=== PATIENT | female | born 1950 | race Caucasian/White ===

== ENCOUNTER 2024-10-15 08:16 | Observation (INO) ==
[2024-10-15] MEDS ORDERED: MoRPHine SULFATE 4 MG/ML 1 ML CARP\\VIAL IV PRN (08:31)
--- NOTE | 2024-10-15 08:45 | Emergency Department Note ---
Impression & Plan Partial obstruction of small intestine, Abdominal pain, Hernia, ventral, Urinary tract infection ED Provider Note NAME: NHAN THAKKAR AGE: 73 SEX: F : 1950 ARRIVES VIA: Walk-In INFORMANT: Patient, ED PROVIDER(S): Steve Katz DO CHIEF COMPLAINT: Abdominal pain HPI: The patient is a 73-year-old female who presented to the emergency department for an evaluation of abdominal pain. The patient described supraumbilical pain. She has a history of ventral hernia and thinks it may have recurred. She denies having any vomiting. She denies having any chest pain or difficulty breathing. ROS: See above HPI for pertinent positives & negatives. A total of 10 systems reviewed and were otherwise negative. PAST MEDICAL HISTORY: See Below PAST SURGICAL HISTORY: See Below FAMILY HISTORY: See Below SOCIAL HISTORY: See Below HOME MEDICATIONS: See Below ALLERGIES: See Below VITALS: See Below PHYSICAL EXAMINATION: GENERAL: Patient is awake alert in no acute distress patient is resting comfortably and showing no signs of anxiety EYES: The conjunctivae are clear. The pupils are round and reactive. EARS, NOSE, MOUTH AND THROAT: The nose is without any evidence of any deformity. NECK: The neck is nontender and supple. RESPIRATORY: Normal respiratory effort is noted there is no evidence of wheezing rhonchi or rales CARDIOVASCULAR: Regular rate and rhythm noted there no murmurs rubs or gallops normal S1 normal S2. GASTROINTESTINAL: The abdomen was soft and mildly distended. There was a scar in the supraumbilical region. There was an area of tenderness which may represent a small ventral hernia. MUSCULOSKELETAL/EXTREMITIES: There is no evidence of gross deformity full range of motion is noted in the hips and shoulders. SKIN: There is no obvious evidence of any rash. There are no petechiae, pallor or cyanosis noted. NEUROLOGIC: Patient is awake alert and oriented x3 MEDICAL DECISION MAKING: The patient is a 73-year-old female who presented to the emergency department for an evaluation of abdominal pain. The patient's had ongoing pain for quite some time but it started getting worse recently. She was seen by her primary general surgeon. She is scheduled for a ventral hernia repair. She started getting different pain and came to the emergency department for further evaluation. Radiographic studies appear to be consistent with an early small bowel obstruction. I discussed her condition with the on-call general surgeon. I also discussed her condition with the on-call [facility] hospitalist. They have agreed to evaluate the patient in the emergency department for further management and disposition. Triage Nursing notes reviewed. Prior medical records reviewed Vital Signs: reviewed and remarkable for no significant abnormalities Differential diagnosis: Etiologies such as appendicitis, diverticulitis, obstruction, inflammatory bowel disease, renal colic, PUD, biliary pathology, pancreatitis, mesenteric ischemia, aortic pathology, infections, genitourinary, UTI, perforated viscus, as well as others were entertained. ER treatment provided: See below Diagnostics interpreted by me: ECG:EKG was obtained in the emergency department. My interpretation is normal sinus rhythm at 75 bpm. There is no ectopy. There is no acute ST segment abnormalities noted. QRS duration was 80 ms. Cardiac Monitoring: An order was placed for continuous cardiac monitoring. The monitor shows a rate of 80 bpm with sinus rhythm. Laboratory studies: As stated above and show below. Imaging studies: See below. Radiographic imaging was reviewed by myself Consultation(s): I discussed this case with Dr. Cuello who is on-call for general surgery. I discussed this case with Dr. Rosen who is on-call for the [facility] hospitalist group. Past Med/Surg History Problem List Acute pneumonia Pleurisy Pleural effusion, right Hypoxia Chest pain (Acute) Acute cholecystitis due to biliary calculus (Acute) Acute cholecystitis History of ERCP Cholelithiasis (Acute) Back problem Chronic diastolic heart failure Edema GERD (gastroesophageal reflux disease) Urinary incontinence Hypertension Medical History History of anesthesia reaction "very very sick coming out of surgery" Bronchitis Arthritis Seizures Surgical History History of knee replacement H/O right hemicolectomy History of bladder surgery History of partial hysterectomy S/P T&A (status post tonsillectomy and adenoidectomy) Hx of colonoscopy Family History Sister Cancer Sister Cancer Mother Heart disease Brother Heart disease Social History Smoking Status: Never smoker Hx Alcohol Use: No Hx Substance Use: No Preferred Language: Latvian Communication Ability: Effective marital status: Current Living Situation: Spouse How many Children do You have: 2 Feels Safe at Home: Yes during the past year weight has: remained stable Assistive Devices: Cane Allergies Allergies Allergy/AdvReac Type Severity Reaction Status Date / Time No Known Allergies Allergy Verified 09/09/23 17:39 Home Meds Home Medications Medication Instructions Recorded Confirmed cholecalciferol (vitamin D3) 25 1,000 unit PO QAM 06/18/18 10/15/24 mcg (1,000 unit) capsule (Vitamin D3) glucosamine-chondroitin 750 mg-600 2 tabs PO QAM 06/18/18 10/15/24 mg tablet meloxicam 15 mg tablet 15 mg PO QAM 06/18/18 10/15/24 metoprolol succinate 25 mg 25 mg PO DAILY 06/18/18 10/15/24 tablet,extended release 24 hr furosemide 40 mg tablet 40 mg PO DAILY 08/31/23 10/15/24 pantoprazole 40 mg tablet,delayed 40 mg PO DAILY 08/31/23 10/15/24 release potassium chloride 20 mEq 20 meq PO DAILY 08/31/23 10/15/24 tablet,extended release ascorbic acid (vitamin C) 500 mg 500 mg PO QAM 09/09/23 10/15/24 tablet (Vitamin C) calcium carbonate 500 mg PO QAM 09/09/23 10/15/24 vitamin E 400 unit tablet 400 unit PO QAM 09/09/23 10/15/24 Iron Infusion 1 dose IV DIRECTED 10/15/24 10/15/24 Probiotic 1 cap PO DAILY 10/15/24 10/15/24 acetaminophen 500 mg tablet 1,500 mg PO HS PRN Pain 10/15/24 10/15/24 ferrous sulfate 325 mg (65 mg 325 mg PO .WED,WED,Wednesday10/15/24 10/15/24 iron) tablet latanoprost 0.005 % eye drops 1 drp ophthalmic (eye) HS 10/15/24 10/15/24 fgttgf-zcitceol-apxyozb 2 cap PO TID 10/15/24 10/15/24 36,000-114,000-180,000 unit capsule,delay rel (Creon) multivitamin 1 tab PO DAILY 10/15/24 10/15/24 Results & Data (ED) Vital Signs Vital Signs - 24 hr 10/15/24 08:22 10/15/24 08:43 10/15/24 08:45 Temperature 36.5 C Temperature Source Oral Pulse Rate 88 Pulse Rate [Apical] 84 Pulse Rhythm Regular Pulse Strength Normal Respiratory Rate 18 20 Respiratory Effort / Characteristics Non-Labored Spontaneous Respiratory Depth Normal Respiratory Pattern Regular Blood Pressure 156/87 H Blood Pressure [Right Arm] 169/88 H Blood Pressure Mean 110 Blood Pressure Mean [Right Arm] 115 Blood Pressure Position Sitting Pulse Oximetry 95 96 Oxygen Delivery Method Room Air Room Air Room Air Sepsis Recent Fever Within 48 Hours No Sepsis New/Unexplained Change in Mental Status No Sepsis Action Taken by Nursing No Action Required 10/15/24 08:53 10/15/24 09:34 10/15/24 11:28 Temperature Temperature Source Pulse Rate 82 Pulse Rate [Apical] 79 80 Pulse Rhythm Pulse Strength Respiratory Rate 17 23 Respiratory Effort / Characteristics Respiratory Depth Respiratory Pattern Blood Pressure Blood Pressure [Right Arm] 152/82 H 150/82 H Blood Pressure Mean Blood Pressure Mean [Right Arm] 105 104 Blood Pressure Position Pulse Oximetry 98 96 Oxygen Delivery Method Room Air Room Air Sepsis Recent Fever Within 48 Hours Sepsis New/Unexplained Change in Mental Status Sepsis Action Taken by Shelter Medications Current Medication List: was personally reviewed by me Laboratory Data Attestation: I reviewed the patient's lab results. 10/15/24 08:48 10/15/24 08:48 Lab Results 10/15/24 10/15/24 10/15/24 Range/Units 08:31 08:48 08:54 WBC 13.45 H (4.8-10.8) K/ul RBC 3.91 L (4.20-5.40) M/uL Hgb 11.3 L (12.0-16.0) g/dl POC Hgb 12.2 (12.0-16.0) g/dl Hct 35.4 L (37.0-47.0) % POC Hct 36 L (37-47) % MCV 90.5 (80.0-100.0) fL MCH 28.9 (25.0-34.0) pg MCHC 31.9 L (32.0-36.0) g/dL RDW Std Deviation 48.0 H (36.4-46.3) fL RDW Coeff of Leonora 14.6 H (11.5-14.5) % Plt Count 302 (130-400) K/uL MPV 9.6 (9.4-12.4) fL Immature Gran % (Auto) 0.4 % Neut % (Auto) 74.3 % Lymph % (Auto) 12.2 % Desha % (Auto) 11.2 % Eos % (Auto) 1.6 % Baso % (Auto) 0.3 % Neut # (Auto) 10.00 H (1.40-6.50) K/uL Lymph # (Auto) 1.64 (1.20-3.40) K/uL Desha # (Auto) 1.50 H (0.11-0.59) K/uL Eos # (Auto) 0.21 (0.00-0.50) K/uL Baso # (Auto) 0.04 (0.00-0.20) K/uL Immature Gran # (Auto) 0.06 (0.01-0.20) K/uL POC Sodium 142 (135-144) mmol/L Sodium 141 (136-145) mmol/L POC Potassium 4.2 (3.3-5.0) mmol/L Potassium 4.3 (3.5-5.1) mmol/L POC Chloride 105 (101-112) mmol/L Chloride 108 H (98-107) mmol/L Carbon Dioxide 26 (21-32) mmol/L POC Total CO2 24 (24-31) mmol/L Anion Gap 7 (3-11) POC Anion Gap 18.0 (16-25) mmol/L POC BUN 15 (7-18) mg/dl BUN 16 (6-23) mg/dl Creatinine 0.57 L (0.6-1.2) mg/dl POC Creatinine 0.6 (0.6-1.3) mg/dl Est Cr Clr Drug Dosing 106.6 ml/min eGFR 95.30 BUN/Creatinine Ratio 28.1 H (10-20) Glucose 111 H (70-99(Fasting)) mg/dl POC Glucose (other) 109 H (70-99) mg/dl Calcium 9.6 (8.6-10.3) mg/dl POC Ioniz Calcium Maritza 1.24 (1.12-1.32) mmol/l Total Bilirubin 0.5 (0.2-1.0) mg/dl AST 12 L (13-39) U/L ALT 13 (7-52) U/L Alkaline Phosphatase 82 (34-104) U/L Troponin I High Sens 2.8 (0-14) pg/ml Total Protein 7.0 (6.0-8.3) gm/dl Albumin 4.4 (3.4-5.0) gm/dl Globulin 2.6 (2.5-4.0) gm/dl Albumin/Globulin Ratio 1.7 (0.9-2) Lipase 4 L (11-82) U/L Urine Color Yellow Urine Appearance Cloudy A (Clear) Urine pH 5.0 (4.5-7.5) Ur Specific Sage 1.013 (1.000-1.030) Urine Protein Negative (Negative) Urine Glucose (UA) Negative (Negative) Urine Ketones Negative (Negative) Urine Blood Trace H (Negative) Urine Nitrite Positive A (Negative) Urine Bilirubin Negative (Negative) Urine Urobilinogen Negative (Negative) Ur Leukocyte Esterase 3+ H (Negative) Urine WBC (Auto) >50 H (0-5) /hpf Urine RBC (Auto) 0-2 (0-2) /hpf U Hyaline Cast (Auto) 0-2 (0-2) /lpf U Epithel Cells (Auto) 0-2 (0-2) /hpf Urine Bacteria (Auto) 4+ H (None Seen) Administered Medications Discontinued Medications Ceftriaxone Sodium (Rocephin) 2,000 mg in 50 mls @ 100 mls/hr IV NOW STA Stop: 10/15/24 09:54 Last Infusion: 10/15/24 10:01 Dose: Infused Documented By: Admin: 10/15/24 09:31 Dose: 100 mls/hr Documented By: VIELKA Ioversol (Optiray 320 100ml) 94 ml IV ONCE ONE Stop: 10/15/24 09:05 Last Admin: 10/15/24 09:05 Dose: 94 ml Documented By: ALMAS Imaging Data Attestation: I personally reviewed and interpreted this imaging study as follows: My Impression: CT of the abdomen and pelvis was obtained in the emergency department. My interpretation is no free air, final report below. Radiologist's Impression: Abdomen/Pelvis CT 10/15/24 08:32 EXAM: CT Abdomen and Pelvis Without Intravenous Contrast INDICATION: Increased abdominal pain around ventral hernia TECHNIQUE: Axial computed tomography images of the abdomen and pelvis without intravenous contrast. Sagittal and coronal reformatted images were created and reviewed. This CT exam was performed using one or more of the following dose reduction techniques: automated exposure control, adjustment of the mA and/or kV according to patient size, and/or use of iterative reconstruction technique. CONTRAST: 94ml of Optiray 320 was administered intravenously. COMPARISON: 2 09/13/2023 FINDINGS: Limitations: None. Lung bases: Course scarring or atelectasis noted in the lung bases. Pleural space: No pleural effusion. Heart: No abnormality noted. Mediastinum: Small sliding hiatal hernia. ABDOMEN: Liver: Trace intrahepatic biliary dilatation and minimal pneumobilia consistent with postoperative change. Gallbladder and bile ducts: Cholecystectomy. There is mild prominent enhancement of the common bile duct which is normal caliber at 6 mm. No calcification. Pancreas: No pancreatic mass, calcification, inflammation or ductal dilation noted. Spleen: No significant abnormality noted. Adrenals: No significant abnormality noted. Kidneys and ureters: Mild bilateral renal cortical scarring noted. Simple right renal cysts. No follow-up of these simple cysts is necessary. Stomach and bowel: Partial right colectomy. Moderate amounts of stool throughout the redundant colon and extensive, diffuse diverticulosis noted. Distal small bowel loops in the right pelvis are thickened and mildly inflamed. Solid contents identified consistent with stasis. No defined obstructing point. PELVIS: Appendix: Appendectomy. Bladder: Appears normal for the degree of filling. No stones or inflammation. No large mass. Masses may not be detected in the absence of opacification. Reproductive: Hysterectomy. ABDOMEN and PELVIS: Intraperitoneal space: Trace fluid in the right lower quadrant. Decreased fluid in the right upper quadrant. No abscess or free air. Bones/joints: Degenerative changes noted throughout the spine. No acute osseous abnormality seen. Soft tissues: There is interval increase size of rectus diastases and umbilical hernia with a large 5.3 cm neck. The sac contains fat. Vasculature: No abdominal aortic aneurysm. Lymph nodes: There are multiple reactive and mildly enlarged right lower quadrant nodes. IMPRESSION: 1. Multiple thickened small bowel loops in the right lower quadrant concerning for developing bowel obstruction. Infectious enteritis also considered. Reactive right lower quadrant adenopathy noted. 2. Prominent enhancement of the common bile duct without stone or dilatation. Correlate clinically for cholangitis. 3. Moderate amounts of diffuse colonic stool and extensive, severe diverticulosis. No diverticulitis. ACT 112: N/A Electronically signed by Hoda Dalal 10-15-2024 09:42 AM Discharge Plan Visit Data Chief Complaint: Abdominal Pain Stated Complaint: HERNIA, ABD PAIN ED Provider: Steve Katz Discharge Problem: Partial obstruction of small intestine, Abdominal pain, Hernia, ventral, Urinary tract infection Patient Disposition: Being Evaluated by Hospitalist Forms Stand Alone Forms: My [facility] Prescriptions Prescriptions: No Action pantoprazole 40 mg tablet,delayed release (DR/EC) 40 mg PO DAILY potassium chloride 20 mEq tablet extended release 20 meq PO DAILY furosemide 40 mg tablet 40 mg PO DAILY meloxicam 15 mg tablet 15 mg PO QAM metoprolol succinate 25 mg tablet extended release 24 hr 25 mg PO DAILY cholecalciferol (vitamin D3) [Vitamin D3] 1,000 unit Capsule 1,000 unit PO QAM glucosamine-chondroitin 750-600 mg Tablet 2 tabs PO QAM multivitamin [Multi-Vitamin] Tablet 1 tab PO DAILY latanoprost 0.005 % drops 1 drp ophthalmic (eye) HS acetaminophen [Tylenol Ex Str Rapid Release] 500 mg Tablet 1,500 mg PO HS PRN (Reason: Pain) ferrous sulfate 325 mg (65 mg iron) Tablet 325 mg PO .MON,WED,WEDNESDAY Creon 36,000-114,000- 180,000 unit capsule,delayed release(DR/EC) 2 cap PO TID Rx Instructions: plus 1 with snack Iron Infusion 1 dose IV DIRECTED Rx Instructions: next infusion october 17 Probiotic 1 cap PO DAILY calcium carbonate 500 mg calcium (1,250 mg) Tablet 500 mg PO QAM Rx Instructions: Patient unsure of strength at this date/time. ascorbic acid (vitamin C) [Vitamin C] 500 mg Tablet 500 mg PO QAM Rx Instructions: Patient unsure of strength at this date/time. vitamin E 400 unit Tablet 400 unit PO QAM Rx Instructions: Patient unsure of strength at this date/time. Referrals Referrals: Sol Davis CRNP [Primary Care Provider] -
[2024-10-15] MEDS: OPTIRAY 320 100ml IV ONE (09:05)
[2024-10-15 09:07] LABS: Basophils # (auto) 0.04 K/uL (0.00-0.20); Basophils % (auto) 0.3 %; Eosinophils # (auto) 0.21 K/uL (0.00-0.50); Eosinophils % (auto) 1.6 %; Hematocrit (blood only) 35.4 % (37.0-47.0); Hemoglobin 11.3 g/dl (12.0-16.0); Immature Granulocytes # (auto) 0.06 K/uL (0.01-0.20); Immature Granulocytes % (auto) 0.4 %; Lymphocytes # (auto) 1.64 K/uL (1.20-3.40); Lymphocytes % (auto) 12.2 %; Mean Corpuscular Hemoglobin 28.9 pg (25.0-34.0); Mean Corpuscular Hgb Conc 31.9 g/dL (32.0-36.0); Mean Corpuscular Volume 90.5 fL (80.0-100.0); Mean Platelet Volume 9.6 fL (9.4-12.4); Monocytes % (auto) 11.2 %; Neutrophils % (auto) 74.3 %; Platelet Count 302 K/uL (130-400); RDW Coefficient of Variation 14.6 % (11.5-14.5); Red Blood Count 3.91 M/uL (4.20-5.40); White Blood Count 13.45 K/ul (4.8-10.8)
[2024-10-15 09:09] LABS: iSTAT Creatinine 0.6 mg/dl (0.6-1.3); iSTAT Hemoglobin 12.2 g/dl (12.0-16.0); iSTAT Ionized Calcium 1.24 mmol/l (1.12-1.32); iSTAT Potassium 4.2 mmol/L (3.3-5.0)
[2024-10-15 09:09] LABS: Appearance Urine Cloudy (Clear); Bacteria Urine Automated 4+ (None Seen); Bilirubin Urine Negative (Negative); Blood Urine Trace (Negative); Cast Urine Automated 0-2 /lpf (0-2); Color Urine Yellow; Epithelial Cell Urine Auto 0-2 /hpf (0-2); Glucose Urine UA Negative (Negative); Ketones Urine Negative (Negative); Leukocyte Esterase Urine 3+ (Negative); Nitrite Urine Positive (Negative); Protein Urine Negative (Negative); RBC Urine Automated 0-2 /hpf (0-2); Specific Gravity Urine 1.013 (1.000-1.030); Urobilinogen Urine Negative (Negative); WBC Urine Automated >50 /hpf (0-5)
[2024-10-15 09:26] LABS: Albumin Globulin Ratio 1.7 (0.9-2); Albumin Level 4.4 gm/dl (3.4-5.0); BUN Creatinine Ratio 28.1 (10-20); Bilirubin,Total 0.5 mg/dl (0.2-1.0); Calcium 9.6 mg/dl (8.6-10.3); Creatinine Clr Calc Pharmacy 106.6 ml/min; Globulin 2.6 gm/dl (2.5-4.0); Potassium 4.3 mmol/L (3.5-5.1)
[2024-10-15] MEDS: cefTRIAXone SODIUM 2,000 MG/50 ML BAG IV STA (09:31)
[2024-10-15 09:32] LABS: Troponin I High Sensitivity 2.8 pg/ml (0-14)
--- NOTE | 2024-10-15 09:43 | CT Scan Report ---
EXAM: CT Abdomen and Pelvis Without Intravenous Contrast INDICATION: Increased abdominal pain around ventral hernia TECHNIQUE: Axial computed tomography images of the abdomen and pelvis without intravenous contrast. Sagittal and coronal reformatted images were created and reviewed. This CT exam was performed using one or more of the following dose reduction techniques: automated exposure control, adjustment of the mA and/or kV according to patient size, and/or use of iterative reconstruction technique. CONTRAST: 94ml of Optiray 320 was administered intravenously. COMPARISON: 2 09/13/2023 FINDINGS: Limitations: None. Lung bases: Course scarring or atelectasis noted in the lung bases. Pleural space: No pleural effusion. Heart: No abnormality noted. Mediastinum: Small sliding hiatal hernia. ABDOMEN: Liver: Trace intrahepatic biliary dilatation and minimal pneumobilia consistent with postoperative change. Gallbladder and bile ducts: Cholecystectomy. There is mild prominent enhancement of the common bile duct which is normal caliber at 6 mm. No calcification. Pancreas: No pancreatic mass, calcification, inflammation or ductal dilation noted. Spleen: No significant abnormality noted. Adrenals: No significant abnormality noted. Kidneys and ureters: Mild bilateral renal cortical scarring noted. Simple right renal cysts. No follow-up of these simple cysts is necessary. Stomach and bowel: Partial right colectomy. Moderate amounts of stool throughout the redundant colon and extensive, diffuse diverticulosis noted. Distal small bowel loops in the right pelvis are thickened and mildly inflamed. Solid contents identified consistent with stasis. No defined obstructing point. PELVIS: Appendix: Appendectomy. Bladder: Appears normal for the degree of filling. No stones or inflammation. No large mass. Masses may not be detected in the absence of opacification. Reproductive: Hysterectomy. ABDOMEN and PELVIS: Intraperitoneal space: Trace fluid in the right lower quadrant. Decreased fluid in the right upper quadrant. No abscess or free air. Bones/joints: Degenerative changes noted throughout the spine. No acute osseous abnormality seen. Soft tissues: There is interval increase size of rectus diastases and umbilical hernia with a large 5.3 cm neck. The sac contains fat. Vasculature: No abdominal aortic aneurysm. Lymph nodes: There are multiple reactive and mildly enlarged right lower quadrant nodes. IMPRESSION: 1. Multiple thickened small bowel loops in the right lower quadrant concerning for developing bowel obstruction. Infectious enteritis also considered. Reactive right lower quadrant adenopathy noted. 2. Prominent enhancement of the common bile duct without stone or dilatation. Correlate clinically for cholangitis. 3. Moderate amounts of diffuse colonic stool and extensive, severe diverticulosis. No diverticulitis. ACT 112: N/A Electronically signed by Hoda Dalal 10-15-2024 09:42 AM
--- NOTE | 2024-10-15 11:51 | History & Physical Report ---
Date of Service October 15, 2024 Assessment & Plan (1) Abdominal pain: (2) Gastritis: (3) Constipation: (4) Urinary incontinence: Plan Jennifer is a 73yo F with PMHx notable for acute cholecystitis, ventral hernia, arthritis, pancreatic insufficiency, and CHF and surgical hx of cholecystectomy, hernia repair, hemicolectomy, and hysterectomy. She presented to the ED on 10/15 due to severe, episodic abdominal pain. #Abd pain - Brief, episodic epigastric pain since her hernia surgery in Apr 2024. Not a/w any activity or diet. - Likely some PUD/gastritis + chronic constipation - Already seen by gen surg, who recommended NPO, IVF, bowel rest d/t imaging concern for developing SBO; however, sx not consistent w/ obstruction, and starting regular diet as soon as tolerated will expedite time to discharge. - Start 40mg Protonix daily + 10mg Pepcid BID #Urinary sx - Reports chronic incontinence and no current dysuria or changes in frequency or urgency - Given 1 x 2g ceftraixone in ED; will discontinue abx now Chronic, stable conditions: - CHF - continue lasix, metoprolol - Pancreatic insufficiency - continue Creon - OA - holding meloxicam Diet: regular VTE ppx: ambulate; may add Lovenox if stay is extended Dispo: admit to med/surg, anticipate d/c home on 10/16 Code: Full History of Present Illness Primary Care Provider: EVELYNE Moore Jennifer is a pleasant 73yo F who presented to the ED on 10/15 due to severe, episodic abdominal pain. She says the pain first began after her hernia surgery in Apr 2024. Since then, she has had several episodes spaced a few days to weeks apart, 3 of which she says were severely painful. She describes the pain as epigastric, bandlike, initially dull with a rolling/pulling sensation internally, but can (those 3 times) become very sharp and severe. Each episode is brief. The pain spontaneously resolves and typically does not return soon. Last night, however, she kept having waves of pain for hours, bad enough that the pain woke her and her partner up. No nausea or vomiting. Pain does not appear a/w any food, activity, or position. She has had issues w diarrhea since her cholecystectomy, and then issues w constipation since starting on pancreatic enzymes and occasionally taking imodium. Reports that the frequency does not correlate to this abd pain. Last BM was yesterday. Her only other complaints are an ongoing cough and associated chest soreness, and recent fatigue with remarkable lack of energy the past few days. Allergies Allergy/AdvReac Type Severity Reaction Status Date / Time No Known Allergies Allergy Verified 09/09/23 17:39 Home Medications Medication Instructions Recorded Confirmed Type cholecalciferol (vitamin D3) 25 1,000 unit PO QAM 06/18/18 10/15/24 History mcg (1,000 unit) capsule (Vitamin D3) glucosamine-chondroitin 750 mg-600 2 tabs PO QAM 06/18/18 10/15/24 History mg tablet meloxicam 15 mg tablet 15 mg PO QAM 06/18/18 10/15/24 History metoprolol succinate 25 mg 25 mg PO DAILY 06/18/18 10/15/24 History tablet,extended release 24 hr furosemide 40 mg tablet 40 mg PO DAILY 08/31/23 10/15/24 History pantoprazole 40 mg tablet,delayed 40 mg PO DAILY 08/31/23 10/15/24 History release potassium chloride 20 mEq 20 meq PO DAILY 08/31/23 10/15/24 History tablet,extended release ascorbic acid (vitamin C) 500 mg 500 mg PO QAM 09/09/23 10/15/24 History tablet (Vitamin C) calcium carbonate 500 mg PO QAM 09/09/23 10/15/24 History vitamin E 400 unit tablet 400 unit PO QAM 09/09/23 10/15/24 History Iron Infusion 1 dose IV DIRECTED 10/15/24 10/15/24 History Probiotic 1 cap PO DAILY 10/15/24 10/15/24 History acetaminophen 500 mg tablet 1,500 mg PO HS PRN Pain 10/15/24 10/15/24 History ferrous sulfate 325 mg (65 mg 325 mg PO .MON,WED,Wednesday10/15/24 10/15/24 History iron) tablet latanoprost 0.005 % eye drops 1 drp ophthalmic (eye) HS 10/15/24 10/15/24 History [id number] 2 cap PO TID 10/15/24 10/15/24 History 36,000-114,000-180,000 unit capsule,delay rel (Creon) multivitamin 1 tab PO DAILY 10/15/24 10/15/24 History Past Med/Surg History Problem List (Updated 10/15/24 @ 12:08 by Benji Adames MD) Constipation Gastritis Abdominal pain Acute pneumonia Pleurisy Pleural effusion, right Hypoxia Chest pain (Acute) Acute cholecystitis due to biliary calculus (Acute) Acute cholecystitis History of ERCP Cholelithiasis (Acute) Back problem Chronic diastolic heart failure Edema GERD (gastroesophageal reflux disease) Urinary incontinence Hypertension Medical History History of anesthesia reaction "very very sick coming out of surgery" Bronchitis Arthritis Seizures Surgical History History of knee replacement H/O right hemicolectomy History of bladder surgery History of partial hysterectomy S/P T&A (status post tonsillectomy and adenoidectomy) Hx of colonoscopy Family History Sister Cancer Sister Cancer Mother Heart disease Brother Heart disease Social History Smoking Status: Never smoker Hx Alcohol Use: No Hx Substance Use: No Preferred Language: Divehi Communication Ability: Effective Legal Support Analyst Required: No Beliefs That Will Affect Care: Rastafarian Rastafarian Beliefs: Conniezahome marital status: Current Living Situation: Spouse How many Children do You have: 2 Feels Safe at Home: Yes during the past year weight has: remained stable Assistive Devices: Cane Review of Systems 2 Review of Systems: Full ROS conducted and negative except as noted in HPI. Physical Exam 2 Physical Exam: Gen: Very pleasant, WD/WN, NAD HEENT: NCAT, PERRL, MMM CV: RRR, no m/r/g, S1/S2 normal Resp: CTAB, symmetrical chest rise, breathing non-labored Abd: Soft, nondistended, mod epigastric tenderness, no guarding or rigidity, no suprapubic or particular quadrant ttp MSK: Full ROM, normal str, no gross deformities, slight RLE swelling Skin: Warm, dry, well-perfused Neuro: AOx3, CN II-XII grossly intact Psych: Mood-affect congruent. Speech pace and content normal. Results & Data Results & Data Vital Signs (Past 12 Hours) Vital Signs Temp Pulse Pulse Resp BP BP Pulse Ox 10/15/24 11:28 80 23 150/82 H 96 10/15/24 09:34 79 17 152/82 H 98 10/15/24 08:53 82 10/15/24 08:45 84 20 169/88 H 96 10/15/24 08:43 10/15/24 08:22 36.5 C 88 18 156/87 H 95 O2 Del Method 10/15/24 11:28 Room Air 10/15/24 09:34 Room Air 10/15/24 08:53 10/15/24 08:45 Room Air 10/15/24 08:43 Room Air 10/15/24 08:22 Room Air Laboratory Results 10/15/24 08:48 10/15/24 08:48 Total Bilirubin 0.5 (0.2-1.0) mg/dl AST 12 L (13-39) U/L ALT 13 (7-52) U/L Alkaline Phosphatase 82 (34-104) U/L Troponin I High Sens 2.8 (0-14) pg/ml Total Protein 7.0 (6.0-8.3) gm/dl Albumin 4.4 (3.4-5.0) gm/dl Globulin 2.6 (2.5-4.0) gm/dl Albumin/Globulin Ratio 1.7 (0.9-2) Lipase 4 L (11-82) U/L Diagnostic Findings Abdomen/Pelvis CT 10/15/24 08:32 EXAM: CT Abdomen and Pelvis Without Intravenous Contrast INDICATION: Increased abdominal pain around ventral hernia TECHNIQUE: Axial computed tomography images of the abdomen and pelvis without intravenous contrast. Sagittal and coronal reformatted images were created and reviewed. This CT exam was performed using one or more of the following dose reduction techniques: automated exposure control, adjustment of the mA and/or kV according to patient size, and/or use of iterative reconstruction technique. CONTRAST: 94ml of Optiray 320 was administered intravenously. COMPARISON: 2 09/13/2023 FINDINGS: Limitations: None. Lung bases: Course scarring or atelectasis noted in the lung bases. Pleural space: No pleural effusion. Heart: No abnormality noted. Mediastinum: Small sliding hiatal hernia. ABDOMEN: Liver: Trace intrahepatic biliary dilatation and minimal pneumobilia consistent with postoperative change. Gallbladder and bile ducts: Cholecystectomy. There is mild prominent enhancement of the common bile duct which is normal caliber at 6 mm. No calcification. Pancreas: No pancreatic mass, calcification, inflammation or ductal dilation noted. Spleen: No significant abnormality noted. Adrenals: No significant abnormality noted. Kidneys and ureters: Mild bilateral renal cortical scarring noted. Simple right renal cysts. No follow-up of these simple cysts is necessary. Stomach and bowel: Partial right colectomy. Moderate amounts of stool throughout the redundant colon and extensive, diffuse diverticulosis noted. Distal small bowel loops in the right pelvis are thickened and mildly inflamed. Solid contents identified consistent with stasis. No defined obstructing point. PELVIS: Appendix: Appendectomy. Bladder: Appears normal for the degree of filling. No stones or inflammation. No large mass. Masses may not be detected in the absence of opacification. Reproductive: Hysterectomy. ABDOMEN and PELVIS: Intraperitoneal space: Trace fluid in the right lower quadrant. Decreased fluid in the right upper quadrant. No abscess or free air. Bones/joints: Degenerative changes noted throughout the spine. No acute osseous abnormality seen. Soft tissues: There is interval increase size of rectus diastases and umbilical hernia with a large 5.3 cm neck. The sac contains fat. Vasculature: No abdominal aortic aneurysm. Lymph nodes: There are multiple reactive and mildly enlarged right lower quadrant nodes. IMPRESSION: 1. Multiple thickened small bowel loops in the right lower quadrant concerning for developing bowel obstruction. Infectious enteritis also considered. Reactive right lower quadrant adenopathy noted. 2. Prominent enhancement of the common bile duct without stone or dilatation. Correlate clinically for cholangitis. 3. Moderate amounts of diffuse colonic stool and extensive, severe diverticulosis. No diverticulitis. Supervising Physician Co-Signing Physician Notes I personally examined the patient and verified all castro points of history and exam, discussed case, and agree with decision making with Dr Adames off and on epigastric discomfort recently. then worse last night into this AM - epigastric/upper abdomen, more intense. also constipated. cough ongoing for a while with some rib pain with coughing vitals noted nad heent nc at mmm abd soft mod distention epigastric tenderness no guarding no rebound no rigidity labs, diagnostics reviewed, CT reviewed personally as well as report abdominal pain -seems most c/w acute gastritis superimposed on chronic constipation ---considered biliary but post choley and alk phos/bili normal, pain more epigastric than RUQ; doubt SBO pathology given her sx being more epigastric and exam more c/w gastritis/constipation than SBO (but serial exams/monitoring will allow this ddx to manifest if it was actually going on) ---on protonix, but also on mobic. stop NSAID, increase acid suppression (temporarily protonix bid and pepcid bid) ---stop imodium, utilize miralax (can probably start more gently since acutely problem is more gastritis//constipation just chronic underlyer perpetuating GI discomfort) ---serial exams, follow on regular diet, CBC/CMP in AM --> if all progressing/reassuring then likely home in AM -d/w surgery as well (consulted by ER, saw already) abnormal UA -pt notes urinary sx are purely chronic - relates anatomic bladder issues ("i've had it tacked multiple times") and nothing new/different about current urinary frequency - hold on further abx for now DVT proph ambulation - if stay becomes unexpectedly prolonged, then can add lovenox Resident Activity Tracking Resident Involvement: Resident Care Provided Care Provided: Adult Hospital Medicine
--- NOTE | 2024-10-15 11:59 | Surgery Consultation ---
Date of Consultation October 15, 2024 Assessment & Plan (1) Abdominal pain: (2) Constipation: Plan 73-year-old woman extensive past surgical history presents with possible early developing small bowel obstruction versus enteritis. She will be admitted to the medicine service. We will treat her conservatively with n.p.o., IV fluids, bowel rest. No surgical intervention required at this time. We will Continue to monitor her while she is here. History of Present Illness Reason for Consultation: small bowel obstruction Requesting Physician: Steve Katz MD Attending Physician: Steve Katz MD History of Present Illness 73-year-old woman with extensive abdominal surgical history including colon resection and cholecystectomy presents with 1 day history of fairly severe upper abdominal pain. She has been having pain like this in waves over the past few weeks. She has a recurrent upper midline ventral hernia containing fat. She was concerned that the hernia was incarcerated and came to the emergency department. She denies nausea or vomiting. She had a bowel movement yesterday. She denies flatus this morning. CT scan demonstrates possible thickening in the small bowel consistent with either enteritis or possible early developing s mall bowel obstruction. Allergies Allergy/AdvReac Type Severity Reaction Status Date / Time No Known Allergies Allergy Verified 09/09/23 17:39 Home Medications Medication Instructions Recorded Confirmed Type cholecalciferol (vitamin D3) 25 1,000 unit PO QAM 06/18/18 10/15/24 History mcg (1,000 unit) capsule (Vitamin D3) glucosamine-chondroitin 750 mg-600 2 tabs PO QAM 06/18/18 10/15/24 History mg tablet meloxicam 15 mg tablet 15 mg PO QAM 06/18/18 10/15/24 History metoprolol succinate 25 mg 25 mg PO DAILY 06/18/18 10/15/24 History tablet,extended release 24 hr furosemide 40 mg tablet 40 mg PO DAILY 08/31/23 10/15/24 History pantoprazole 40 mg tablet,delayed 40 mg PO DAILY 08/31/23 10/15/24 History release potassium chloride 20 mEq 20 meq PO DAILY 08/31/23 10/15/24 History tablet,extended release ascorbic acid (vitamin C) 500 mg 500 mg PO QAM 09/09/23 10/15/24 History tablet (Vitamin C) calcium carbonate 500 mg PO QAM 09/09/23 10/15/24 History vitamin E 400 unit tablet 400 unit PO QAM 09/09/23 10/15/24 History Iron Infusion 1 dose IV DIRECTED 10/15/24 10/15/24 History Probiotic 1 cap PO DAILY 10/15/24 10/15/24 History acetaminophen 500 mg tablet 1,500 mg PO HS PRN Pain 10/15/24 10/15/24 History ferrous sulfate 325 mg (65 mg 325 mg PO .MON,WED,Wednesday10/15/24 10/15/24 History iron) tablet latanoprost 0.005 % eye drops 1 drp ophthalmic (eye) HS 10/15/24 10/15/24 History hsryng-[id number]-[id number] 2 cap PO TID 10/15/24 10/15/24 History 36,000-114,000-180,000 unit capsule,delay rel (Creon) multivitamin 1 tab PO DAILY 10/15/24 10/15/24 History Patient History Medical History History of anesthesia reaction "very very sick coming out of surgery" Bronchitis Arthritis Seizures Surgical History History of knee replacement H/O right hemicolectomy History of bladder surgery History of partial hysterectomy S/P T&A (status post tonsillectomy and adenoidectomy) Hx of colonoscopy Family History Sister Cancer Sister Cancer Mother Heart disease Brother Heart disease Social History Smoking Status: Never smoker Hx Alcohol Use: No Hx Substance Use: No Preferred Language: Bengali Communication Ability: Effective Community Engagement Representative Required: No Beliefs That Will Affect Care: Alevism Alevism Beliefs: [place]ome marital status: Current Living Situation: Spouse How many Children do You have: 2 Feels Safe at Home: Yes during the past year weight has: remained stable Assistive Devices: Cane Review of Systems Review of Systems: All systems reviewed & are unremarkable except as noted in HPI & below Physical Exam Constitutional: WD/WN, vitals as above Eyes: PERRL, conjunctivae normal, anicteric sclerae Neck: trachea midline, no thyromegaly Respiratory: normal respiratory effort; no respiratory distress and no labored breathing Cardiovascular: Rate/Rhythm: regular rate and regular rhythm Gastrointestinal (Abdomen): Inspection/Auscultation: abdomen normal to inspection and + abdomen distended ( Mild) Percussion/Palpation: + abdomen tender ( mild upper abdominal tenderness), abdomen soft and + hernia ( upper midline containing fat, at least partially reducible); no guarding and abdomen not rigid Skin: no rashes, warm and dry Psychiatric: A+Ox3, euthymic affect Results & Data Vital Signs (Past 12 Hours) Vital Signs Temp Pulse Pulse Resp BP BP Pulse Ox 10/15/24 11:28 80 23 150/82 H 96 10/15/24 09:34 79 17 152/82 H 98 10/15/24 08:53 82 10/15/24 08:45 84 20 169/88 H 96 10/15/24 08:43 10/15/24 08:22 36.5 C 88 18 156/87 H 95 O2 Del Method 10/15/24 11:28 Room Air 10/15/24 09:34 Room Air 10/15/24 08:53 10/15/24 08:45 Room Air 10/15/24 08:43 Room Air 10/15/24 08:22 Room Air Laboratory Results 10/15/24 10/15/24 10/15/24 Range/Units 08:54 08:48 08:31 WBC 13.45 H (4.8-10.8) K/ul RBC 3.91 L (4.20-5.40) M/uL Hgb 11.3 L (12.0-16.0) g/dl POC Hgb 12.2 (12.0-16.0) g/dl Hct 35.4 L (37.0-47.0) % POC Hct 36 L (37-47) % MCV 90.5 (80.0-100.0) fL MCH 28.9 (25.0-34.0) pg MCHC 31.9 L (32.0-36.0) g/dL RDW Std Deviation 48.0 H (36.4-46.3) fL RDW Coeff of Leonora 14.6 H (11.5-14.5) % Plt Count 302 (130-400) K/uL MPV 9.6 (9.4-12.4) fL Immature Gran % (Auto) 0.4 % Neut % (Auto) 74.3 % Lymph % (Auto) 12.2 % [place] % (Auto) 11.2 % Eos % (Auto) 1.6 % Baso % (Auto) 0.3 % Neut # (Auto) 10.00 H (1.40-6.50) K/uL Lymph # (Auto) 1.64 (1.20-3.40) K/uL [place] # (Auto) 1.50 H (0.11-0.59) K/uL Eos # (Auto) 0.21 (0.00-0.50) K/uL Baso # (Auto) 0.04 (0.00-0.20) K/uL Immature Gran # (Auto) 0.06 (0.01-0.20) K/uL POC Sodium 142 (135-144) mmol/L Sodium 141 (136-145) mmol/L POC Potassium 4.2 (3.3-5.0) mmol/L Potassium 4.3 (3.5-5.1) mmol/L POC Chloride 105 (101-112) mmol/L Chloride 108 H (98-107) mmol/L Carbon Dioxide 26 (21-32) mmol/L POC Total CO2 24 (24-31) mmol/L Anion Gap 7 (3-11) POC Anion Gap 18.0 (16-25) mmol/L POC BUN 15 (7-18) mg/dl BUN 16 (6-23) mg/dl Creatinine 0.57 L (0.6-1.2) mg/dl POC Creatinine 0.6 (0.6-1.3) mg/dl Est Cr Clr Drug Dosing 106.6 ml/min eGFR 95.30 BUN/Creatinine Ratio 28.1 H (10-20) Glucose 111 H (70-99(Fasting)) mg/dl POC Glucose (other) 109 H (70-99) mg/dl Calcium 9.6 (8.6-10.3) mg/dl POC Ioniz Calcium Maritza 1.24 (1.12-1.32) mmol/l Total Bilirubin 0.5 (0.2-1.0) mg/dl AST 12 L (13-39) U/L ALT 13 (7-52) U/L Alkaline Phosphatase 82 (34-104) U/L Troponin I High Sens 2.8 (0-14) pg/ml Total Protein 7.0 (6.0-8.3) gm/dl Albumin 4.4 (3.4-5.0) gm/dl Globulin 2.6 (2.5-4.0) gm/dl Albumin/Globulin Ratio 1.7 (0.9-2) Lipase 4 L (11-82) U/L Urine Color Yellow Urine Appearance Cloudy A (Clear) Urine pH 5.0 (4.5-7.5) Ur Specific [place] 1.013 (1.000-1.030) Urine Protein Negative (Negative) Urine Glucose (UA) Negative (Negative) Urine Ketones Negative (Negative) Urine Blood Trace H (Negative) Urine Nitrite Positive A (Negative) Urine Bilirubin Negative (Negative) Urine Urobilinogen Negative (Negative) Ur Leukocyte Esterase 3+ H (Negative) Urine WBC (Auto) >50 H (0-5) /hpf Urine RBC (Auto) 0-2 (0-2) /hpf U Hyaline Cast (Auto) 0-2 (0-2) /lpf U Epithel Cells (Auto) 0-2 (0-2) /hpf Urine Bacteria (Auto) 4+ H (None Seen) Diagnostic Findings EXAM: CT Abdomen and Pelvis Without Intravenous Contrast INDICATION: Increased abdominal pain around ventral hernia TECHNIQUE: Axial computed tomography images of the abdomen and pelvis without intravenous contrast. Sagittal and coronal reformatted images were created and reviewed. This CT exam was performed using one or more of the following dose reduction techniques: automated exposure control, adjustment of the mA and/or kV according to patient size, and/or use of iterative reconstruction technique. CONTRAST: 94ml of Optiray 320 was administered intravenously. COMPARISON: 2 09/13/2023 FINDINGS: Limitations: None. Lung bases: Course scarring or atelectasis noted in the lung bases. Pleural space: No pleural effusion. Heart: No abnormality noted. Mediastinum: Small sliding hiatal hernia. ABDOMEN: Liver: Trace intrahepatic biliary dilatation and minimal pneumobilia consistent with postoperative change. Gallbladder and bile ducts: Cholecystectomy. There is mild prominent enhancement of the common bile duct which is normal caliber at 6 mm. No calcification. Pancreas: No pancreatic mass, calcification, inflammation or ductal dilation noted. Spleen: No significant abnormality noted. Adrenals: No significant abnormality noted. Kidneys and ureters: Mild bilateral renal cortical scarring noted. Simple right renal cysts. No follow-up of these simple cysts is necessary. Stomach and bowel: Partial right colectomy. Moderate amounts of stool throughout the redundant colon and extensive, diffuse diverticulosis noted. Distal small bowel loops in the right pelvis are thickened and mildly inflamed. Solid contents identified consistent with stasis. No defined obstructing point. PELVIS: Appendix: Appendectomy. Bladder: Appears normal for the degree of filling. No stones or inflammation. No large mass. Masses may not be detected in the absence of opacification. Reproductive: Hysterectomy. ABDOMEN and PELVIS: Intraperitoneal space: Trace fluid in the right lower quadrant. Decreased fluid in the right upper quadrant. No abscess or free air. Bones/joints: Degenerative changes noted throughout the spine. No acute osseous abnormality seen. Soft tissues: There is interval increase size of rectus diastases and umbilical hernia with a large 5.3 cm neck. The sac contains fat. Vasculature: No abdominal aortic aneurysm. Lymph nodes: There are multiple reactive and mildly enlarged right lower quadrant nodes. IMPRESSION: 1. Multiple thickened small bowel loops in the right lower quadrant concerning for developing bowel obstruction. Infectious enteritis also considered. Reactive right lower quadrant adenopathy noted. 2. Prominent enhancement of the common bile duct without stone or dilatation. Correlate clinically for cholangitis. 3. Moderate amounts of diffuse colonic stool and extensive, severe diverticulosis. No diverticulitis.
--- NOTE | 2024-10-15 12:12 | Billing Data ---
Date of Service October 15, 2024 Coding Level of Care Code 44142 INT INP/OBS CARE
[2024-10-15] MEDS: ONDANSETRON INJ 2 MG/ML 2 ML VIAL IV STA (12:15)
[2024-10-15] MEDS: POLYETHYLENE (MIRALAX) 17 GM PACK PO ONE (14:23)
[2024-10-15] MEDS: METOPROLOL SUCC 25MG EXT REL TAB PO SCH (14:23)
[2024-10-15] MEDS: FUROSEMIDE 40 MG TAB PO SCH (14:23)
[2024-10-15] MEDS: PANCREAZE (LIPASE 10,500U) CAP PO SCH (14:23)
[2024-10-15] MEDS: FAMOTIDINE 10 MG TABLET PO SCH (14:23)
[2024-10-15] MEDS: PANTOprazole 40 MG TAB PO SCH (14:23)
[2024-10-15] MEDS: LATANOPROST 0.005% OP SOLN 2.5 ML BTL OP SCH (20:50)
[2024-10-15] MEDS: ACETAMINOPHEN 325 MG TAB PO PRN (23:16)
[2024-10-16 06:54] LABS: Hematocrit (blood only) 36.5 % (37.0-47.0); Hemoglobin 11.6 g/dl (12.0-16.0); Mean Corpuscular Hemoglobin 28.6 pg (25.0-34.0); Mean Corpuscular Hgb Conc 31.8 g/dL (32.0-36.0); Mean Corpuscular Volume 90.1 fL (80.0-100.0); Mean Platelet Volume 9.9 fL (9.4-12.4); Platelet Count 312 K/uL (130-400); RDW Coefficient of Variation 14.6 % (11.5-14.5); RDW Standard Deviation 47.9 fL (36.4-46.3); Red Blood Count 4.05 M/uL (4.20-5.40); White Blood Count 12.52 K/ul (4.8-10.8)
[2024-10-16 07:18] LABS: Albumin Globulin Ratio 1.4 (0.9-2); Albumin Level 4.3 gm/dl (3.4-5.0); BUN Creatinine Ratio 19.1 (10-20); Bilirubin,Total 0.6 mg/dl (0.2-1.0); Calcium 9.6 mg/dl (8.6-10.3); Creatinine Clr Calc Pharmacy 89.4 ml/min; Globulin 3.1 gm/dl (2.5-4.0); Potassium 3.9 mmol/L (3.5-5.1); Total Protein 7.4 gm/dl (6.0-8.3)
--- NOTE | 2024-10-16 08:08 | Electrocardiogram Report ---
Test Reason : Blood Pressure : */* mmHG Vent. Rate : 75 BPM Atrial Rate : 75 BPM P-R Int : 180 ms QRS Dur : 80 ms QT Int : 372 ms P-R-T Axes : 37 -42 38 degrees QTcB Int : 415 ms Normal sinus rhythm Left axis deviation Low voltage QRS Abnormal ECG When compared with ECG of 11-Sep-2023 17:33, No significant change was found Confirmed by Sol Dubon (Lise) on 10/16/2024 8:07:57 AM Referred By: REFERRED SELF Confirmed By: Sol Dubon
--- NOTE | 2024-10-16 09:01 | Surgery Progress Note ---
Date of Service October 16, 2024 Assessment & Plan (1) Abdominal pain: (2) Constipation: Plan 73-year-old woman extensive past surgical history presents with possible early developing small bowel obstruction versus enteritis. 10/16/24 avss + bowel function no further abdominal pain tolerating regular diet Plan: okay from surgical standpoint for discharge continue medical management our services signing off Dr. Cuello has seen and examined pt, agrees with above. Admission and Anticipated Discharge Date Admission Date: October 15, 2024 Subjective feeling great, ready to go home having multiple loose bowel movements last night tolerated regular diet without pain, n,v Physical Exam Constitutional: WD/WN, vitals as above cooperative and comfortable; no acute distress and not ill appearing Respiratory: normal respiratory effort Gastrointestinal (Abdomen): Inspection/Auscultation: abdomen normal to inspection and + visible herniation (midline fat containing hernia); abdomen not distended Percussion/Palpation: + abdomen tender (mild at hernia) and abdomen soft; no guarding, abdomen not rigid and abdomen not firm Skin: no rashes, warm and dry Psychiatric: A+Ox3, euthymic affect Results & Data Vital Signs (Past 12 Hours) Vital Signs Temp Pulse Resp BP Pulse Ox O2 Del Method 10/16/24 07:44 36.5 C 73 17 132/74 94 Room Air Laboratory Results 10/16/24 10/15/24 10/15/24 Range/Units 06:16 08:54 08:48 WBC 12.52 H 13.45 H (4.8-10.8) K/ul RBC 4.05 L 3.91 L (4.20-5.40) M/uL Hgb 11.6 L 11.3 L (12.0-16.0) g/dl POC Hgb 12.2 (12.0-16.0) g/dl Hct 36.5 L 35.4 L (37.0-47.0) % POC Hct 36 L (37-47) % MCV 90.1 90.5 (80.0-100.0) fL MCH 28.6 28.9 (25.0-34.0) pg MCHC 31.8 L 31.9 L (32.0-36.0) g/dL RDW Std Deviation 47.9 H 48.0 H (36.4-46.3) fL RDW Coeff of Leonora 14.6 H 14.6 H (11.5-14.5) % Plt Count 312 302 (130-400) K/uL MPV 9.9 9.6 (9.4-12.4) fL Immature Gran % (Auto) 0.4 % Neut % (Auto) 74.3 % Lymph % (Auto) 12.2 % [place] % (Auto) 11.2 % Eos % (Auto) 1.6 % Baso % (Auto) 0.3 % Neut # (Auto) 10.00 H (1.40-6.50) K/uL Lymph # (Auto) 1.64 (1.20-3.40) K/uL [place] # (Auto) 1.50 H (0.11-0.59) K/uL Eos # (Auto) 0.21 (0.00-0.50) K/uL Baso # (Auto) 0.04 (0.00-0.20) K/uL Immature Gran # (Auto) 0.06 (0.01-0.20) K/uL POC Sodium 142 (135-144) mmol/L Sodium 140 141 (136-145) mmol/L POC Potassium 4.2 (3.3-5.0) mmol/L Potassium 3.9 4.3 (3.5-5.1) mmol/L POC Chloride 105 (101-112) mmol/L Chloride 104 108 H (98-107) mmol/L Carbon Dioxide 31 26 (21-32) mmol/L POC Total CO2 24 (24-31) mmol/L Anion Gap 5 7 (3-11) POC Anion Gap 18.0 (16-25) mmol/L POC BUN 15 (7-18) mg/dl BUN 13 16 (6-23) mg/dl Creatinine 0.68 0.57 L (0.6-1.2) mg/dl POC Creatinine 0.6 (0.6-1.3) mg/dl Est Cr Clr Drug Dosing 89.4 106.6 ml/min eGFR 91.33 95.30 BUN/Creatinine Ratio 19.1 28.1 H (10-20) Glucose 127 H 111 H (70-99(Fasting)) mg/dl POC Glucose (other) 109 H (70-99) mg/dl Calcium 9.6 9.6 (8.6-10.3) mg/dl POC Ioniz Calcium Maritza 1.24 (1.12-1.32) mmol/l Total Bilirubin 0.6 0.5 (0.2-1.0) mg/dl AST 12 L 12 L (13-39) U/L ALT 12 13 (7-52) U/L Alkaline Phosphatase 81 82 (34-104) U/L Troponin I High Sens 2.8 (0-14) pg/ml Total Protein 7.4 7.0 (6.0-8.3) gm/dl Albumin 4.3 4.4 (3.4-5.0) gm/dl Globulin 3.1 2.6 (2.5-4.0) gm/dl Albumin/Globulin Ratio 1.4 1.7 (0.9-2) Lipase 4 L (11-82) U/L Urine Color Urine Appearance (Clear) Urine pH (4.5-7.5) Ur Specific [place] (1.000-1.030) Urine Protein (Negative) Urine Glucose (UA) (Negative) Urine Ketones (Negative) Urine Blood (Negative) Urine Nitrite (Negative) Urine Bilirubin (Negative) Urine Urobilinogen (Negative) Ur Leukocyte Esterase (Negative) Urine WBC (Auto) (0-5) /hpf Urine RBC (Auto) (0-2) /hpf U Hyaline Cast (Auto) (0-2) /lpf U Epithel Cells (Auto) (0-2) /hpf Urine Bacteria (Auto) (None Seen) 10/15/ Range/Units 08:31 WBC (4.8-10.8) K/ul RBC (4.20-5.40) M/uL Hgb (12.0-16.0) g/dl POC Hgb (12.0-16.0) g/dl Hct (37.0-47.0) % POC Hct (37-47) % MCV (80.0-100.0) fL MCH (25.0-34.0) pg MCHC (32.0-36.0) g/dL RDW Std Deviation (36.4-46.3) fL RDW Coeff of Leonora (11.5-14.5) % Plt Count (130-400) K/uL MPV (9.4-12.4) fL Immature Gran % (Auto) % Neut % (Auto) % Lymph % (Auto) % [place] % (Auto) % Eos % (Auto) % Baso % (Auto) % Neut # (Auto) (1.40-6.50) K/uL Lymph # (Auto) (1.20-3.40) K/uL [place] # (Auto) (0.11-0.59) K/uL Eos # (Auto) (0.00-0.50) K/uL Baso # (Auto) (0.00-0.20) K/uL Immature Gran # (Auto) (0.01-0.20) K/uL POC Sodium (135-144) mmol/L Sodium (136-145) mmol/L POC Potassium (3.3-5.0) mmol/L Potassium (3.5-5.1) mmol/L POC Chloride (101-112) mmol/L Chloride (98-107) mmol/L Carbon Dioxide (21-32) mmol/L POC Total CO2 (24-31) mmol/L Anion Gap (3-11) POC Anion Gap (16-25) mmol/L POC BUN (7-18) mg/dl BUN (6-23) mg/dl Creatinine (0.6-1.2) mg/dl POC Creatinine (0.6-1.3) mg/dl Est Cr Clr Drug Dosing ml/min eGFR BUN/Creatinine Ratio (10-20) Glucose (70-99(Fasting)) mg/dl POC Glucose (other) (70-99) mg/dl Calcium (8.6-10.3) mg/dl POC Ioniz Calcium Maritza (1.12-1.32) mmol/l Total Bilirubin (0.2-1.0) mg/dl AST (13-39) U/L ALT (7-52) U/L Alkaline Phosphatase (34-104) U/L Troponin I High Sens (0-14) pg/ml Total Protein (6.0-8.3) gm/dl Albumin (3.4-5.0) gm/dl Globulin (2.5-4.0) gm/dl Albumin/Globulin Ratio (0.9-2) Lipase (11-82) U/L Urine Color Yellow Urine Appearance Cloudy A (Clear) Urine pH 5.0 (4.5-7.5) Ur Specific [place] 1.013 (1.000-1.030) Urine Protein Negative (Negative) Urine Glucose (UA) Negative (Negative) Urine Ketones Negative (Negative) Urine Blood Trace H (Negative) Urine Nitrite Positive A (Negative) Urine Bilirubin Negative (Negative) Urine Urobilinogen Negative (Negative) Ur Leukocyte Esterase 3+ H (Negative) Urine WBC (Auto) >50 H (0-5) /hpf Urine RBC (Auto) 0-2 (0-2) /hpf U Hyaline Cast (Auto) 0-2 (0-2) /lpf U Epithel Cells (Auto) 0-2 (0-2) /hpf Urine Bacteria (Auto) 4+ H (None Seen)
[2024-10-16 12:00] VITALS: BP 132/80; PULSE 71; RESP 16; TEMP 97.5; O2SAT 95
--- NOTE | 2024-10-16 12:08 | Discharge Summary ---
Date of Service October 16, 2024 Admission HPI Per Admitting Provider Jennifer is a pleasant 73yo F who presented to the ED on 10/15 due to severe, episodic abdominal pain. She says the pain first began after her hernia surgery in Apr 2024. Since then, she has had several episodes spaced a few days to weeks apart, 3 of which she says were severely painful. She describes the pain as epigastric, bandlike, initially dull with a rolling/pulling sensation internally, but can (those 3 times) become very sharp and severe. Each episode is brief. The pain spontaneously resolves and typically does not return soon. Last night, however, she kept having waves of pain for hours, bad enough that the pain woke her and her partner up. No nausea or vomiting. Pain does not appear a/w any food, activity, or position. She has had issues w diarrhea since her cholecystectomy, and then issues w constipation since starting on pancreatic enzymes and occasionally taking imodium. Reports that the frequency does not correlate to this abd pain. Last BM was yesterday. Her only other complaints are an ongoing cough and associated chest soreness, and recent fatigue with remarkable lack of energy the past few days. Principal Diagnosis abdominal pain Constipation Discharge Exam Constitutional WD/WN, vitals as above Eyes PERRL, conjunctivae normal, anicteric sclerae Respiratory normal respiratory effort, lungs clear to auscultation Cardiovascular RRR, no murmur, no edema Gastrointestinal (Abdomen) normal bowel sounds, soft, nontender, no hepatosplenomegaly Skin no rashes, warm and dry Discharge Data Allergies Allergy/AdvReac Type Severity Reaction Status Date / Time No Known Allergies Allergy Verified 09/09/23 17:39 Consultations 10/15/24 09:58 Consult General Surgery Stat 10/15/24 10:26 ED Decision to Admit Stat Ordered Studies 10/15/24 08:32 CT abd pelvis IV con only Stat Hospital Course (1) Abdominal pain: (2) Gastritis: (3) Constipation: (4) Urinary incontinence: Plan Jennifer is a 73yo F with PMHx notable for acute cholecystitis, ventral hernia, arthritis, pancreatic insufficiency, and CHF and surgical hx of cholecystectomy, hernia repair, hemicolectomy, and hysterectomy. She presented to the ED on 10/15 due to severe, episodic abdominal pain. #Abd pain #Gastritis #Constipation - Brief, episodic epigastric pain since her hernia surgery in Apr 2024. - Likely some PUD/gastritis + chronic constipation - Seen by gen surg, who recommended NPO, IVF, bowel rest d/t imaging concern for developing SBO; however, sx not consistent w/ obstruction - Started on 40mg Protonix daily + 10mg Pepcid BID - will discharge home with omeprazole 40 mg and Pepcid 20 mg daily. Bowel movement regimen - Follow up with PCP #Urinary sx - Reports chronic incontinence and no current dysuria or changes in frequency or urgency - Given 1 x 2g ceftraixone in ED; will discontinue abx now Chronic, stable conditions: - CHF - continue lasix, metoprolol - Pancreatic insufficiency - continue Creon - OA - holding meloxicam Diet: regular VTE ppx: ambulate; may add Lovenox if stay is extended Dispo: admit to med/surg, anticipate d/c home on 10/16 Code: Full Total Time Total Time Spent Total Time Spent (In Minutes): see attending documentation Discharge Plan Discharge Items Patient Disposition: Home - Self-Care Reason For Visit: ABD PAIN Discharge Diagnosis: Constipation Activity: Per Instructions section Non-emergency contact: Primary Care Provider Call non-emergency contact if: you have any medication questions, your symptoms worsen, your pain is not controlled and your pain is worsening Follow-up/Referrals: Sol Davis CRNP [Primary Care Provider] - (SPOKE TO RN AND THE OFFICE WILL CALL THE PATIENT WITH A HOSPITAL FOLLOW UP VISIT IN 7-10 DAYS.) Diet: Regular Addtl Attending Provider Instructions: - You were admitted to the hospital due to abdominal pain. You were admitted due to concern of possible early developing bowel obstruction. This resolved after bowel regiment. Pain was secondary to gastritis + constipation - We recommend daily bowel regimen with Miralax daily - You were treated with Protonix and Pepcid, these are acid suppressive medication. We recommend Pepcid 20 mg twice a day for a week. We sent to your pharmacy Omeprazole take 40 mg daily for 1 week. -You can find this over the counter. You should avoid NSAIDs (such as Meloxicam) which can weaken the mucosa barrier increasing the susceptibility to ulcers - We recommend close follow up with your PCP to re evaluate your symtoms A discharge summary will be sent to your primary care physician to ensure continuity of care. Please bring this discharge summary with you to your next office appointment so that your provider can review it at that time. Medications: Your medication list has been reviewed and reconciled upon discharge to ensure accuracy and continuity of care. An updated list of all your medications is included with your hospital discharge paperwork. Please review this list closely and make note of any changes to your medications. - Miralax daily, you can increase this twice a day until daily BMs. Avoid Immodium - Pepcid 20 mg twice a day. You can find this over the counter. Follow up appointments: - Make a follow up appointment with your PCP within the next week. It is very important that you follow up with them shortly after discharge from the hospital. - Keep all of your follow up appointments as already scheduled. If you cannot make an appointment, notify your provider. CONTACT YOUR PRIMARY CARE PROVIDER if you experience any of the following: - Difficulty following your treatment plan - Difficulty taking any of your medications CALL 911 OR GO TO THE EMERGENCY DEPARTMENT if you experience any of the following: - Sudden, severe abdominal pain or nausea/vomiting - Severe chest pain or chest pain that radiates to your jaw or arm - Sudden, severe shortness of breath or difficulty breathing Pending Studies at Discharge: No Stand-Alone Forms: [facility] [employer], Smoking Cessation Medications and DC Order Prescriptions: New omeprazole 40 mg capsule,delayed release(DR/EC) 40 mg PO DAILY 7 Days Qty: 7 0RF Continued pantoprazole 40 mg tablet,delayed release (DR/EC) 40 mg PO DAILY potassium chloride 20 mEq tablet extended release 20 meq PO DAILY furosemide 40 mg tablet 40 mg PO DAILY metoprolol succinate 25 mg tablet extended release 24 hr 25 mg PO DAILY cholecalciferol (vitamin D3) [Vitamin D3] 1,000 unit Capsule 1,000 unit PO QAM glucosamine-chondroitin 750-600 mg Tablet 2 tabs PO QAM multivitamin Tablet 1 tab PO DAILY latanoprost 0.005 % drops 1 drp ophthalmic (eye) HS acetaminophen 500 mg Tablet 1,500 mg PO HS PRN (Reason: Pain) ferrous sulfate 325 mg (65 mg iron) Tablet 325 mg PO .MON,WED,WEDNESDAY Creon 36,000-114,000- 180,000 unit capsule,delayed release(DR/EC) 2 cap PO TID Rx Instructions: plus 1 with snack Iron Infusion 1 dose IV DIRECTED Rx Instructions: next infusion october 17 Probiotic 1 cap PO DAILY calcium carbonate 500 mg calcium (1,250 mg) Tablet 500 mg PO QAM Rx Instructions: Patient unsure of strength at this date/time. ascorbic acid (vitamin C) [Vitamin C] 500 mg Tablet 500 mg PO QAM Rx Instructions: Patient unsure of strength at this date/time. vitamin E 400 unit Tablet 400 unit PO QAM Rx Instructions: Patient unsure of strength at this date/time. Discontinued meloxicam 15 mg tablet 15 mg PO QAM Discharge Orders: Discharge Order (Routine); Ordered 10/16/24 Ordered By: Katiuska Moser Admission Data Admit Date/Time: 10/15/24 11:48 Attending Provider: Anisa Hawkins Admit Provider: Benji Adames Primary Care Provider: Sol Davis Other Providers: Eriberto Cuello; Arnol Rosen Other Interventions: Discharge Summary Assessment (RN) Last Done: 10/16/24 13:15 Supervising Physician Co-Signing Physician Notes I personally examined the patient and verified castro points of history and exam, discussed case, and agree with decision making and plan documented by Dr. Bola Moser. Patient is a 73-year-old female with extensive past abdominal surgical history including cholecystectomy, ventral hernia repair, hemicolectomy, and hysterectomy on exam for acute epigastric abdominal pain. Patient reports starting Creon therapy a couple weeks ago and taking multiple loperamide's to prevent chronic intermittent diarrhea after cholecystectomy. Patient was evaluated by surgery and maintained with n.p.o., IV fluids and bowel rest due to concern of possible SBO. She was provided bowel regimen and had a large bowel movement that improved her pain. Patient reports she was able to tolerate breakfast and lunch well and was hopeful for discharge. Patient appears comfortable on exam, lungs clear b/l to auscultation, regular rate and rhythm, ventral reducible hernia, mild epigastric discomfort to deep palpation, otherwise no abdominal tenderness RLQ, LUQ, LLQ, no rebound or guarding, no acute distress. Patient will follow-up with PCP in 1 week. Resident Activity Tracking Resident Involvement: Resident Care Provided Care Provided: Adult [facility] Medicine
== END 2024-10-16 13:37 | disposition home or self-care (01) ==
LOC: 3E 08:16 → ED 08:16 → SUATTDRO 11:48 → 3E 12:57